=== PATIENT | female | born 1980 | race Caucasian/White ===

== ENCOUNTER 2016-08-12 18:37 | Emergency (ER) | payer OTHER ==
[~2016-08-12] VITALS: Ht 165.1 cm; Wt 70.0 kg
[~2016-08-12 18:37] MED LIST: PREN0.01 PO
[2016-08-12 18:45] VITALS: BP 106/52; PULSE 60; RESP 16; TEMP 98; O2SAT 98
--- NOTE | 2016-08-12 19:13 | PD ---
HPI Chief Complaint: Psychiatric Symptoms Time Seen by Provider: 19:09 Travel History International Travel<30 days: No Contact w/Intl Traveler<30days: No Traveled to known affect area: No History of Present Illness HPI 36-year-old female that presents here for evaluation of Vaughan act. Patient was Vaughan acted by police. Patient apparently is undergoing pending divorce from the father of her new son. Per patient she's been suffering from a lot of stress because of this and has been made her more depressed and has had some suicidal ideation. Police was called because she was threatening herself with a handgun. She states that she will just gave 3 months ago for a child. She denies any allergies. No other medical issues. Takes no medications. Denies any homicidal ideation. No other medical issues at this time. PFSH Past Medical History Diminished Hearing: No Social History Alcohol Use: No Tobacco Use: No Substance Use: No Allergies-Medications (Allergen,Severity, Reaction): Coded Allergies: No Known Allergies (Unverified , 06/22/14) Reported Meds & Prescriptions Reported Meds & Active Scripts Active Reported Vit ( Plus) (Prenat Multivit/Insurance Plan Specialist/Iron/Folic Ac) Tab 1 Tab PO DAILY Review of Systems Except as stated in HPI: all other systems reviewed are Neg Physical Exam Narrative GENERAL: SKIN: Warm and dry. HEAD: Atraumatic. Normocephalic. EYES: Pupils equal and round. No scleral icterus. No injection or drainage. ENT: No nasal bleeding or discharge. Mucous membranes pink and moist. Tongue is midline. No uvula deviation. NECK: Trachea midline. No JVD. CARDIOVASCULAR: Regular rate and rhythm. No murmurs, S3, S4. RESPIRATORY: No accessory muscle use. Clear to auscultation. Breath sounds equal bilaterally. GASTROINTESTINAL: Abdomen soft, non-tender, nondistended. Hepatic and splenic margins not palpable. MUSCULOSKELETAL: Extremities without clubbing, cyanosis, or edema. No obvious deformities. Full range of motion of the upper and lower extremities bilaterally. 2+ pulses bilaterally. NEUROLOGICAL: Awake and alert. No obvious cranial nerve deficits. Motor grossly within normal limits. Five out of 5 muscle strength in the arms and legs. Normal speech. PSYCHIATRIC: Appropriate mood and affect; insight and judgment normal. Data Data Last Documented VS Vital Signs Date Time Temp Pulse Resp B/P Pulse Ox O2 Delivery O2 Flow Rate FiO2 6/8/17 18:45 98.0 60 16 106/52 98 Orders Complete Blood Count With Diff (08/12/16 18:52) Comprehensive Metabolic Panel (08/12/16 18:52) Psych Screen (08/12/16 18:52) Drug Screen, Random Urine (08/12/16 18:52) Alcohol (Ethanol) (08/12/16 18:52) Salicylates (Aspirin) (08/12/16 18:52) Tylenol (Acetaminophen) (08/12/16 18:52) MDM Medical Decision Making Medical Screen Exam Complete: Yes Emergency Medical Condition: Yes Medical Record Reviewed: Yes Differential Diagnosis Depression versus suicidal ideation versus anxiety versus adjustment disorder versus mood disorder versus bipolar disorder versus schizophrenia versus paranoid disorder versus psychosis versus substance abuse versus alcohol abuse versus alcohol induced psychosis versus homicidality addition versus cutting versus personality disorder Narrative Course 36-year-old female that presents to the ED for evaluation of psych. Patient was properly examined and was found to have signs and symptoms very consistent what appears to be depression. No sign of acute medical distress. Labs were ordered. Patient will be medically clear. Okay to be seen by psych. Mental health screening was discussed with the patient. Diagnosis Primary Impression: Suicidal ideation [place] Vance Aug 12, 2016 19:13
[2016-08-12 19:30] LABS: AUTOMATED NEUTROPHIL # 2.5 TH/MM3 (1.8-7.7); BASOPHIL % 0.6 % (0.0-2.0); EOSINOPHIL # 0.2 TH/MM3 (0-0.4); EOSINOPHIL % 3.2 % (0.0-4.0); HEMATOCRIT 42.7 % (35.0-46.0); HEMO FLAGS DIFF FINAL; LYMPHOCYTE # 1.9 TH/MM3 (1.0-4.8); MEAN CELL VOLUME 88.7 FL (80.0-100.0); MEAN CORPUSCULAR HEMOGLOBIN 29.7 PG (27.0-34.0); MEAN CORPUSCULAR HGB CONC 33.5 % (32.0-36.0); MONO % 6.2 % (0.0-8.0); PLATELET COUNT 317 TH/MM3 (150-450); RED BLOOD COUNT 4.82 MIL/MM3 (4.00-5.30); RED CELL DISTRIBUTION WIDTH 13.2 % (11.6-17.2); WHITE BLOOD COUNT 4.9 TH/MM3 (4.0-11.0)
[2016-08-12 19:31] LABS: AMPHETAMINE, URINE NEG (NEG); BARBITURATES, URINE NEG (NEG); COCAINE, URINE NEG (NEG)
[2016-08-12 19:53] LABS: ANION GAP 14 MEQ/L (5-15); AST (GOT) 22 U/L (15-37); BICARBONATE 20.8 MEQ/L (21.0-32.0); BLOOD UREA NITROGEN 14 MG/DL (7-18); CHLORIDE 109 MEQ/L (98-107); GLOMERULAR FILTRATION RATE 70 ML/MIN (>89); POTASSIUM 3.8 MEQ/L (3.5-5.1); SODIUM (NA) 144 MEQ/L (136-145)
[2016-08-12 19:54] LABS: ALT (GPT) 29 U/L (10-53)
[2016-08-12 19:56] LABS: ALKALINE PHOSPHATASE 85 U/L (45-117); TOTAL BILIRUBIN ADULT 0.2 MG/DL (0.2-1.0)
[2016-08-12 20:07] LABS: ACETAMINOPHEN LESS THAN 2.0 MCG/ML (10.0-30.0)
[2016-08-12] MEDS ORDERED: ONDANSETRON ODT 4 MG TAB PO ONE (22:15)
[2016-08-13 02:44] VITALS: BP 102/57; PULSE 56; RESP 16
[2016-08-13 06:17] VITALS: BP 141/76; PULSE 70; RESP 16
--- NOTE | 2016-08-13 11:19 | PD ---
History of Present Illness Chief Complaint: Psychiatric Symptoms Time Seen by Provider: 09:45 Travel History International Travel<30 Days: No Contact w/Intl Traveler<30days: No Known affected area: No Legal Status Legal Status: Vaughan Act Vaughan Act Signed By: Boby Li History of Present Illness: 36-year-old female who was brought in under a Vaughan act for threatening to shoot herself. Apparently she and her are and they got into a verbal altercation last night. The patient states that her verbally berates her and she is needing and wanting to get out of the marriage. She states she became desperate last night and threatened to shoot herself. At this time she feels that was a mistake. She denies any suicidal or homicidal ideation, plan or intent. She exhibits no psychotic symptoms and her cognition is intact. She is verbally todd for safety. She would like to go home with her mother, to her mother's home. PFSH Past Medical History Medical History: Denies Significant Hx Diminished Hearing: No ?: Not : 2 Para: 2 Past Surgical History Section: Yes Psychiatric History Psychiatric History Hx Psychiatric Treatment: PATIENT DENIES History of Inpatient Treatment: No Guns or firearms in home: Yes Social History Hx Alcohol Use: No Hx Tobacco Use: No Hx Substance Use: No Hx of Substance Use Treatment: No Allergies-Medications (Allergen,Severity, Reaction): Coded Allergies: No Known Allergies (Unverified , 06/22/14) Reported Meds & Prescriptions Reported Meds & Active Scripts Active Review of Systems Except as stated in HPI: all other systems reviewed are Neg Exam Alert: Yes Beattie: Person, Place, Date, Situation Mood: Calm Affect: Appropriate Speech: Clear, Logical Eye Contact: Normal Memory Intact: Immediate, Recent, Remote Insight/Judgement Adequate MDM Medical Decision Making Medical Record Reviewed: Yes Assessment/Plan Patient's Vaughan act is being lifted per her request. She is not suicidal, homicidal, psychotic, or cognitively impaired. She is verbally todd for safety. She has a plan to go to her mother's home. She has the insight and judgment not to make the same mistake again. She does not meet inpatient criteria in my opinion. Orders Complete Blood Count With Diff (08/12/16 18:52) Comprehensive Metabolic Panel (08/12/16 18:52) Psych Screen (08/12/16 18:52) Drug Screen, Random Urine (08/12/16 18:52) Alcohol (Ethanol) (08/12/16 18:52) Salicylates (Aspirin) (08/12/16 18:52) Tylenol (Acetaminophen) (08/12/16 18:52) Ondansetron Odt (Zofran Odt) (08/12/16 22:15) Diet Regular Basic (08/13/16 Breakfast) Results Vital Signs Date Time Temp Pulse Resp B/P Pulse Ox O2 Delivery O2 Flow Rate FiO2 08/13/16 06:17 70 16 141/76 08/13/16 02:44 56 16 102/57 08/12/16 18:45 98.0 60 16 106/52 98 Laboratory Tests Test 08/12/16 18:55 White Blood Count 4.9 Red Blood Count 4.82 Hemoglobin 14.3 Hematocrit 42.7 Mean Corpuscular Volume 88.7 Mean Corpuscular Hemoglobin 29.7 Mean Corpuscular Hemoglobin 33.5 Concent Red Cell Distribution Width 13.2 Platelet Count 317 Mean Platelet Volume 8.1 Neutrophils (%) (Auto) 51.0 Lymphocytes (%) (Auto) 39.0 Monocytes (%) (Auto) 6.2 Eosinophils (%) (Auto) 3.2 Basophils (%) (Auto) 0.6 Neutrophils # (Auto) 2.5 Lymphocytes # (Auto) 1.9 Monocytes # (Auto) 0.3 Eosinophils # (Auto) 0.2 Basophils # (Auto) 0.0 CBC Comment DIFF FINAL Differential Comment Sodium Level 144 Potassium Level 3.8 Chloride Level 109 Carbon Dioxide Level 20.8 Anion Gap 14 Blood Urea Nitrogen 14 Creatinine 0.91 Estimat Glomerular Filtration 70 Rate Random Glucose 101 Calcium Level 8.9 Total Bilirubin 0.2 Aspartate Amino Transf 22 (AST/SGOT) Alanine Aminotransferase 29 (ALT/SGPT) Alkaline Phosphatase 85 Total Protein 8.2 Albumin 4.2 Salicylates Level LESS THAN 1.7 Urine Opiates Screen NEG Acetaminophen Level LESS THAN 2.0 Urine Barbiturates Screen NEG Urine Amphetamines Screen NEG Urine Benzodiazepines Screen NEG Urine Cocaine Screen NEG Urine Cannabinoids Screen NEG Ethyl Alcohol Level 53 Diagnosis Primary Impression: Adjustment disorder with mixed disturbance of emotions and conduct Departure Forms: Tests/Procedures Patient Instructions: General Instructions, Stress (ED) Additional Instructions: WE RECOMMEND COUNSELING. A LIST OF RESOURCES PROVIDED. MAY FOLOW UP WITH A COUNSELOR OF YOUR CHOICE Disposition: 01 DISCHARGE HOME Condition: Stable Kendall Worthy MD Aug 13, 2016 11:19
== END 2016-08-13 10:51 | disposition home or self-care (01) ==
LOC: NEDAMB 18:37 → NEPJ 08-13 10:51
DX: R45.851 Suicidal ideations (principal); F43.25 Adjustment disorder with mixed disturbance of emotions and conduct
CPT/HCPCS: 80053; 80307; 85025; 99284